=== PATIENT | female | born 1985 | race Caucasian/White ===

== ENCOUNTER → 2017-12-31 13:02 | Outpatient (CLI) | payer OTHER, SELFPAY ==
[2017-12-31 16:06] LABS: T4 Free Direct 1.04 ng/dL (0.76-1.46); Thyroid Stim Hormone (TSH) 1.41 uIU/mL (0.358-3.74)
== END ==
PROVIDERS: Family Provider Family Medicine; PCP Family Medicine; Visit Provider Family Medicine
DX: E03.9 Hypothyroidism, unspecified (principal)
CPT/HCPCS: 36415; 84439; 84443; 84480

== ENCOUNTER → 2018-04-21 11:47 | Outpatient (CLI) | payer OTHER, SELFPAY ==
[2018-04-21 15:52] LABS: Absolute Lymphocyte Count 2.27 X10^3/ul (0.83-4.51); Absolute Neutrophil Count 4.8 X10^3/uL (2.0-7.7); Basophil# 0.02 X10^3/uL; Basophil% 0.3 % (0-1); Eosinophil# 0.06 X10^3/uL; Eosinophils% 0.8 % (0-5); Hematocrit 40.3 % (37-47); Hemoglobin 13.8 g/dl (12.0-15.0); Lymphocyte # 2.27 X10^3/ul (4.0); Lymphocyte % 29.7 % (19-41); Mean Corp Hgb Conc 34.2 g/gl (32-36); Mean Corpuscular Hgb 31.1 pg (27.0-32.0); Mean Corpuscular Volume 90.8 fL (81-99); Mean Platelet Vol. 9.9 fl (6.2-12.0); Monocyte# 0.45 X10^3/uL; Monocyte% 5.9 % (0-10); Neutrophil # 4.83 X10^3/uL (2.7-7.7); Neutrophil % 63.2 % (47-70); Platelet Count 238 K/mm3 (150-450); RBC Distribution Width CV 12.2 % (11.6-14.6); RBC Distribution Width SD 39.8 fl (35.1-43.9); Red Blood Count 4.44 M/mm3 (4.2-5.4); White Blood Count 7.6 K/mm3 (4.4-11.0)
[2018-04-21 15:57] LABS: POSITIVE COUNT NO; POSITIVE DIFFERENTIAL NO; POSITIVE MORPHOLOGY NO
[2018-04-24 15:59] LABS: EBV Acute VCA IgM < 36.0 U/mL (0.0-35.9); EBV Early Antigen IgG 51.2 U/mL (0.0-8.9)
== END ==
PROVIDERS: Family Provider Family Medicine; PCP Family Medicine; Visit Provider Family Medicine
DX: J02.9 Acute pharyngitis, unspecified (principal)
CPT/HCPCS: 36415; 85025; 86663; 86664; 86665

== ENCOUNTER → 2018-07-01 07:36 | Outpatient (CLI) | payer OTHER, SELFPAY ==
[2018-07-01 10:34] LABS: T3 Total - Triiodothyronine 0.99 ng/mL (0.6-1.81)
[2018-07-01 10:42] LABS: T4 Free Direct 1.07 ng/dL (0.76-1.46); Thyroid Stim Hormone (TSH) 3.39 uIU/mL (0.358-3.74)
== END ==
PROVIDERS: Family Provider Family Medicine; PCP Family Medicine; Referring Provider Family Medicine; Visit Provider Family Medicine
DX: E03.9 Hypothyroidism, unspecified (principal)
CPT/HCPCS: 36415; 84439; 84443; 84480

== ENCOUNTER → 2018-09-22 10:05 | Outpatient (CLI) | payer OTHER, SELFPAY ==
[2018-09-21 10:35] VITALS: BMI 21.2
== END ==
PROVIDERS: Family Provider Family Medicine; PCP Family Medicine; Referring Provider Physician Assistant Medical; Visit Provider Physician Assistant Medical
DX: J02.9 Acute pharyngitis, unspecified (principal)
CPT/HCPCS: 87077; 87081

== ENCOUNTER → 2018-10-09 10:53 | Outpatient (CLI) | payer OTHER, SELFPAY ==
[2018-09-21 10:35] VITALS: BMI 21.2
== END ==
PROVIDERS: Family Provider Family Medicine; PCP Family Medicine; Visit Provider Family Medicine
DX: J02.9 Acute pharyngitis, unspecified (principal)
CPT/HCPCS: 87070

== ENCOUNTER → 2019-02-24 | Outpatient (CLI) | payer OTHER, SELFPAY ==
[2019-02-24 08:41] VITALS: BMI 21.2
== END | disposition home or self-care (01) ==
LOC: LABSPEC 14:26
PROVIDERS: Family Provider Family Medicine; PCP Family Medicine; Referring Provider Physician Assistant Medical; Visit Provider Physician Assistant Medical
DX: J02.9 Acute pharyngitis, unspecified (principal)
CPT/HCPCS: 87081

== ENCOUNTER → 2019-11-17 08:35 | Outpatient (CLI) | payer OTHER, SELFPAY ==
[2019-02-24 08:41] VITALS: BMI 21.2
[2019-11-17 10:01] LABS: Absolute Lymphocyte Count 1.63 X10^3/uL (0.83-4.51); Absolute Neutrophil Count 2.6 X10^3/uL (2.0-7.7); Basophil# 0.03 X10^3/uL; Basophil% 0.6 % (0-1); Eosinophil# 0.18 X10^3/uL; Eosinophils% 3.8 % (0-5); Hematocrit 39.1 % (37-47); Lymphocyte # 1.63 X10^3/ul (4.0); Lymphocyte % 34.1 % (19-41); Mean Corp Hgb Conc 33.2 g/dL (32-36); Mean Corpuscular Hgb 29.7 pg (27.0-32.0); Mean Corpuscular Volume 89.3 fL (81-99); Mean Platelet Vol. 9.1 fl (6.2-12.0); Monocyte# 0.32 X10^3/uL; Monocyte% 6.7 % (0-10); NRBC Flagged by Analyzer 0 % (0-5); Neutrophil # 2.61 X10^3/uL (2.7-7.7); Neutrophil % 54.6 % (47-70); Platelet Count 193 K/mm3 (150-450); RBC Distribution Width SD 38.8 fl (35.1-43.9); Red Blood Count 4.38 M/mm3 (4.2-5.4); White Blood Count 4.8 K/mm3 (4.4-11.0)
[2019-11-17 10:25] LABS: ALB/GLOB Ratio 1.1 RATIO (0.9-2.4); AST(SGOT) 14 U/L (15-37); Alanine Aminotransfer ALT/SGPT 20 U/L (13-56); Albumin, Serum 3.8 g/dL (3.2-5.0); Alkaline Phosphatase 71 U/L (45-117); Anion Gap 5 (5-15); BUN 15 mg/dL (7-18); BUN/Creat Ratio 18.8 RATIO (10-20); Calcium,Total 8.3 mg/dL (8.5-10.1); Chloride 107 mmol/L (98-107); Cholesterol 223 mg/dL (200); EST Glomerular Filtration Rate 87 mL/min (>60); Est Glom Filt Rate - Afr Amer 105 mL/min (>60); Free T3 2.5 pg/mL (2.18-3.98); Globulin 3.4 g/dL (2.2-4.2); Glucose 94 mg/dL (74-106); High Density Lipoprotein 64 mg/dL; Potassium 4.1 mmol/L (3.5-5.1); Protein, Total 7.2 g/dL (6.4-8.2); Sodium Level 139 mmol/L (136-145); T4 Free Direct 1.06 ng/dL (0.76-1.46); Thyroid Stim Hormone (TSH) 1.47 uIU/mL (0.358-3.74); Triglycerides 68 mg/dL; Very Low Density Lipoprotein 14 mg/dL (5-40)
== END ==
PROVIDERS: PCP Family Medicine; Referring Provider Family Medicine; Visit Provider Family Medicine
DX: E03.9 Hypothyroidism, unspecified (principal); K76.0 Fatty (change of) liver, not elsewhere classified; Z51.81 Encounter for therapeutic drug level monitoring; Z13.220 Encounter for screening for lipoid disorders
CPT/HCPCS: 36415; 80053; 80061; 84439; 84443; 84481; 85025

== ENCOUNTER → 2020-04-13 07:59 | Outpatient (CLI) | payer OTHER, SELFPAY ==
[2019-02-24 08:41] VITALS: BMI 21.2
[2020-04-13 08:27] LABS: hCG Titer Quant., Serum < 1 mIU/mL (1-3)
== END ==
PROVIDERS: PCP Family Medicine; Referring Provider Obstetrics & Gynecology Reproductive Endocrinology; Visit Provider Obstetrics & Gynecology Reproductive Endocrinology
DX: Z32.00 Encounter for pregnancy test, result unknown (principal)
CPT/HCPCS: 36415; 84702

== ENCOUNTER → 2020-06-28 | Outpatient (CLI) | payer OTHER, SELFPAY ==
[2020-06-28 08:41] VITALS: BMI 21.2
== END | disposition home or self-care (01) ==
LOC: LABSPEC 13:15
PROVIDERS: PCP Family Medicine; Referring Provider Physician Assistant Surgical; Visit Provider Physician Assistant Surgical
DX: J02.9 Acute pharyngitis, unspecified (principal)
CPT/HCPCS: 87081

== ENCOUNTER → 2020-09-16 09:16 | Outpatient (CLI) | payer OTHER, SELFPAY ==
[2020-06-28 08:41] VITALS: BMI 21.2
[2020-09-16 10:09] LABS: Absolute Lymphocyte Count 1.53 X10^3/uL (0.83-4.51); Absolute Neutrophil Count 3.4 X10^3/uL (2.0-7.7); Basophil# 0.02 X10^3/uL; Basophil% 0.4 % (0-1); Eosinophil# 0.13 X10^3/uL; Eosinophils% 2.4 % (0-5); Hematocrit 41.4 % (37-47); Hemoglobin 13.7 g/dL (12.0-15.0); Lymphocyte # 1.53 X10^3/ul (4.0); Lymphocyte % 28.1 % (19-41); Mean Corp Hgb Conc 33.1 g/dL (32-36); Mean Corpuscular Hgb 30.2 pg (27.0-32.0); Mean Corpuscular Volume 91.4 fL (81-99); Mean Platelet Vol. 9.1 fl (6.2-12.0); Monocyte# 0.37 X10^3/uL; Monocyte% 6.8 % (0-10); NRBC Flagged by Analyzer 0 % (0-5); Neutrophil # 3.38 X10^3/uL (2.7-7.7); Neutrophil % 61.9 % (47-70); Platelet Count 236 K/mm3 (150-450); RBC Distribution Width CV 12.6 % (11.6-14.6); RBC Distribution Width SD 41.8 fl (35.1-43.9); Red Blood Count 4.53 M/mm3 (4.2-5.4); White Blood Count 5.5 K/mm3 (4.4-11.0)
[2020-09-16 10:49] LABS: ALB/GLOB Ratio 1.3 RATIO (0.9-2.4); AST(SGOT) 15 U/L (15-37); Alanine Aminotransfer ALT/SGPT 15 U/L (13-56); Albumin, Serum 4.3 g/dL (3.2-5.0); Alkaline Phosphatase 72 U/L (45-117); Anion Gap 4 (5-15); BUN 15 mg/dL (7-18); BUN/Creat Ratio 16.8 RATIO (10-20); Calcium,Total 8.5 mg/dL (8.5-10.1); Chloride 109 mmol/L (98-107); Cholesterol 202 mg/dL (200); Creatinine, Serum 0.89 mg/dL (0.55-1.02); EST Glomerular Filtration Rate 76 mL/min (>60); Est Glom Filt Rate - Afr Amer 92 mL/min (>60); Free T3 2.3 pg/mL (2.18-3.98); Globulin 3.3 g/dL (2.2-4.2); Glucose 93 mg/dL (74-106); High Density Lipoprotein 68 mg/dL; Potassium 4.3 mmol/L (3.5-5.1); Protein, Total 7.6 g/dL (6.4-8.2); Sodium Level 139 mmol/L (136-145); T4 Free Direct 1.15 ng/dL (0.76-1.46); Triglycerides 40 mg/dL; Very Low Density Lipoprotein 8 mg/dL (5-40)
== END ==
PROVIDERS: PCP Family Medicine; Referring Provider Family Medicine; Visit Provider Family Medicine
DX: E03.9 Hypothyroidism, unspecified (principal); E78.5 Hyperlipidemia, unspecified; Z51.81 Encounter for therapeutic drug level monitoring
CPT/HCPCS: 36415; 80053; 80061; 84439; 84443; 84481; 85025

== ENCOUNTER 2020-12-30 12:26 | Outpatient (RCR) | payer BC, SELFPAY ==
[2020-06-28 08:41] VITALS: BMI 21.2
== END 2021-03-07 23:59 ==
LOC: IMMUN 12:26
PROVIDERS: PCP Family Medicine; Visit Provider Family Medicine
DX: Z23 Encounter for immunization (principal)
CPT/HCPCS: 0001A; 0002A; 91300

== ENCOUNTER → 2021-05-03 | Outpatient (CLI) | payer BC, SELFPAY ==
[2021-05-03 14:54] VITALS: BMI 21.2
== END | disposition home or self-care (01) ==
LOC: LABSPEC 18:07
PROVIDERS: PCP Family Medicine; Visit Provider Physician Assistant Surgical
DX: N39.0 Urinary tract infection, site not specified (principal)
CPT/HCPCS: 87077; 87086; 87088; 87186

== ENCOUNTER → 2023-03-08 | Outpatient (CLI) | payer BC, SELFPAY ==
[2023-03-08 11:51] LABS: Free T3 2.4 pg/mL (2.18-3.98); T4 Free Direct 1.03 ng/dL (0.76-1.46); Thyroid Stim Hormone (TSH) 1.96 uIU/mL (0.358-3.74)
== END | disposition home or self-care (01) ==
LOC: MTLAB 08:55
PROVIDERS: PCP Family Medicine; Referring Provider Family Medicine; Visit Provider Family Medicine
DX: E03.9 Hypothyroidism, unspecified (principal)
CPT/HCPCS: 36415; 84439; 84443; 84481

== ENCOUNTER → 2023-12-20 | Outpatient (CLI) | payer BC, SELFPAY ==
[2023-12-20 12:00] LABS: Erythrocyte Sedimentation Rate < 1 mm/hr (0-30)
[2023-12-20 12:02] LABS: Mean Corp Hgb Conc 33.3 g/dL (32-36); Mean Corpuscular Hgb 30.8 pg (27.0-32.0); Mean Corpuscular Volume 92.3 fL (81-99); Mean Platelet Vol. 9.5 fl (6.2-12.0); Platelet Count 252 K/mm3 (150-450); RBC Distribution Width CV 11.8 % (11.6-14.6); RBC Distribution Width SD 39.4 fl (35.1-43.9); Red Blood Count 4.55 M/mm3 (4.2-5.4); White Blood Count 5.2 K/mm3 (4.4-11.0)
[2023-12-20 12:45] LABS: ALB/GLOB Ratio 1.2 RATIO (0.9-2.4); AST(SGOT) 15 U/L (15-37); Alanine Aminotransfer ALT/SGPT 17 U/L (13-56); Albumin, Serum 4.2 g/dL (3.2-5.0); Alkaline Phosphatase 77 U/L (45-117); Anion Gap 8 (5-15); BUN 12 mg/dL (7-18); BUN/Creat Ratio 13.9 RATIO (10-20); Calcium,Total 9.1 mg/dL (8.5-10.1); Chloride 104 mmol/L (98-107); Cholesterol 234 mg/dL (200); Creatinine, Serum 0.86 mg/dL (0.55-1.02); EST Glomerular Filtration Rate 78 mL/min (>60); Est Glom Filt Rate - Afr Amer 94 mL/min (>60); Ferritin 79 ng/mL (8-252); Globulin 3.5 g/dL (2.2-4.2); Glucose 96 mg/dL (74-106); High Density Lipoprotein 71 mg/dL; Iron 55 ug/dL (50-170); Potassium 4.2 mmol/L (3.5-5.1); Protein, Total 7.7 g/dL (6.4-8.2); Sodium Level 138 mmol/L (136-145); T4 Free Direct 1.09 ng/dL (0.76-1.46); Thyroid Stim Hormone (TSH) 1.66 uIU/mL (0.358-3.74); Triglycerides 41 mg/dL; Very Low Density Lipoprotein 8 mg/dL (5-40)
== END | disposition home or self-care (01) ==
LOC: BIMLAB 09:26
PROVIDERS: PCP Nurse Practitioner; Referring Provider Nurse Practitioner; Visit Provider Nurse Practitioner
DX: Z00.00 Encounter for general adult medical examination without abnormal findings (principal); E07.9 Disorder of thyroid, unspecified; R22.31 Localized swelling, mass and lump, right upper limb
CPT/HCPCS: 36415; 80053; 80061; 82728; 83540; 84439; 84443; 84482; 85027; 85652

== ENCOUNTER → 2023-12-26 | Outpatient (CLI) | payer BC, SELFPAY ==
--- NOTE | 2023-12-26 14:22 | BI_ITS ---
MAMMOGRAPHY - BILATERAL DIAGNOSTIC REASON FOR EXAM: Female, 38 years old. Right axillary mass. PERTINENT HISTORY: Aunt with breast cancer. TECHNIQUE: Digital bilateral breast pushpa (3D mammographic acquisition) in the CC and MLO projections. 2-D mediolateral oblique (MLO) and craniocaudad (CC) views of both breasts were obtained. CAD: Full Field Digital Mammography with Computer Added Detection was performed. COMPARISON: None. Baseline examination. FINDINGS: Breast Composition: The breasts are extremely dense, which lowers the sensitivity of mammography. There are no dominant masses or suspicious calcifications. No other significant abnormalities are identified. BI/DIAG MAMM W/CAD, BILAT IMPRESSION: Negative diagnostic mammogram. With the patient''s history of a right axillary mass, correlation with ultrasound is recommended. ASSESSMENT CATEGORY: BIRADS Category 0: Incomplete. Need additional imaging evaluation. A letter regarding these results will be sent to the patient by the facility within 30 days. Approximately 10% of breast cancers are not detected by mammography. A normal mammogram should not delay biopsy of a clinically suspicious abnormality. Electronically Signed: Bishnu Springer MD at 15:17 EDT ,
--- NOTE | 2023-12-26 14:22 | US_ITS ---
STUDY: ULTRASOUND BREAST - RIGHT REASON FOR EXAM: Female, 38 years old. Right axillary mass. History of prior Covid and right axillary adenopathy. TECHNIQUE: Axial and longitudinal images of the RIGHT breast were performed with a high resolution ultrasound transducer. # OF IMAGES: 34 COMPARISON: Comparison is made with prior mammogram done earlier today. FINDINGS: RIGHT Breast: The right axilla was examined with ultrasound. Several lymph nodes are seen. The largest measures 2 cm x 1.5 cm x 1 cm. Fatty hilum is seen suggestive of benignity. US/Breast Limited Unilateral IMPRESSION: Lymph nodes are seen in the right axilla. ASSESSMENT CATEGORY: BIRADS Category 2: Benign. A letter regarding these results will be sent to the patient by the facility within 30 days. Electronically Signed: Bishnu Springer MD at 15:40 EDT ,
== END | disposition home or self-care (01) ==
PROVIDERS: PCP Nurse Practitioner; Referring Provider Nurse Practitioner; Visit Provider Nurse Practitioner
DX: R22.31 Localized swelling, mass and lump, right upper limb (principal); N63.31 Unspecified lump in axillary tail of the right breast; Z80.3 Family history of malignant neoplasm of breast
CPT/HCPCS: 76642; 77062; 77066; G0279

== ENCOUNTER → 2023-12-31 | Outpatient (CLI) | payer BC, SELFPAY ==
[2023-12-31 12:11] LABS: Internal QC Validated? YES +Cl - CLEAR BKGD; Monotest Negative (Negative)
[2023-12-31 12:12] LABS: Record Kit Lot#, Mono 13231163
[2023-12-31 12:14] LABS: HIV - WCH Non-Reactive (Nonreactive)
[2024-01-03 08:11] LABS: B. henselae IgG Negative titer (Neg:<1:320); B. henselae IgM Negative titer (Neg:<1:100); B. quintana IgG Negative titer (Neg:<1:320); B. quintana IgM Negative titer (Neg:<1:100); CMV Acute Antibody IgM < 30.0 AU/mL (0.0-29.9); Hepatitis Be Ag Negative (Negative); Lyme Scn Total Ab w/Rflx Negative (Negative); QNTFERON TB Mitogen Value > 10.00 IU/mL (.); QNTFERON TB Nil Value 0.07 IU/mL (.); QNTFERON TB1+ Ag Value 0.05 IU/mL (.); QNTFERON TB2+ Ag Value 0.05 IU/mL (.); QNTIFERON TB Positive Criteria Negative (Negative)
== END | disposition home or self-care (01) ==
LOC: BIMLAB 09:23
PROVIDERS: PCP Nurse Practitioner; Referring Provider Nurse Practitioner; Visit Provider Nurse Practitioner
DX: R59.1 Generalized enlarged lymph nodes (principal)
CPT/HCPCS: 36415; 86308; 86480; 86611; 86618; 86645; 86703; 87350

== ENCOUNTER → 2024-01-07 | Outpatient (CLI) | payer BC, SELFPAY ==
--- NOTE | 2024-01-07 14:24 | US_ITS ---
EXAM: US PELVIS TRANSABDOMINAL, COMPLETE CLINICAL INDICATION: PAIN TECHNIQUE: Transabdominal pelvic ultrasound was performed with grayscale and color Doppler imaging. COMPARISON: No relevant prior studies available. FINDINGS: UTERUS/CERVIX: Uterus measures 8.3 x 5.2 x 3.8 cm with endometrial thickness of 3 mm. 9 mm anterior uterine fibroid is noted. Anteverted. RIGHT OVARY: Normal. Blood flow is present in the right ovary. The right ovary measures 2.9 x 1.9 x 1.7 cm. LEFT OVARY: Normal. Blood flow is present in the left ovary. The left ovary measures 3.0 x 1.9 x 1.7 cm. FREE FLUID: None. US/Pelvic (Non ) IMPRESSION: 9 mm uterine fibroid. Otherwise unremarkable pelvic ultrasound. Electronically Signed: Daryn Campbell MD at 15:01 EDT ,
[2024-01-07 15:48] LABS: Erythrocyte Sedimentation Rate < 1 mm/hr (0-30)
[2024-01-07 16:42] LABS: CRP < 2.90 mg/L (0.0-3.0); LDH 180 U/L (84-246)
== END | disposition home or self-care (01) ==
PROVIDERS: PCP Nurse Practitioner; Referring Provider Obstetrics & Gynecology; Visit Provider Obstetrics & Gynecology
DX: R10.2 Pelvic and perineal pain (principal); N80.9 Endometriosis, unspecified
CPT/HCPCS: 36415; 76856; 83615; 85652; 86140

== ENCOUNTER → 2024-01-14 | Outpatient (CLI) | payer BC, SELFPAY ==
[2024-01-15 14:09] LABS: ANTINUCLEAR ANTIBODIES DIRECT Negative (Negative)
[2024-01-17 03:07] LABS: CCP IgG Antibodies 3 units (0-19); Dilute Prothrombin Time (dPT) 35.6 sec (0.0-47.6); Dilute Russell Viper Venom 32.8 sec (0.0-47.0); Interpretation Comment: (.); PTT-LA 33.8 sec (0.0-43.5); Thrombin Time 19.6 sec (0.0-23.0); dPT Confirm Ratio 0.99 Ratio (0.00-1.34)
== END | disposition home or self-care (01) ==
LOC: BIMLAB 09:19
PROVIDERS: PCP Nurse Practitioner; Visit Provider Nurse Practitioner
DX: R59.1 Generalized enlarged lymph nodes (principal)
CPT/HCPCS: 86038; 86200; 86225; 86235

== ENCOUNTER 2024-04-08 12:30 | Outpatient (RCR) | payer BC, SELFPAY ==
--- NOTE | 2024-03-06 16:26 | HP.PTEVAL_ITS ---
Patient's Visit Information Visit Information Visit Information: MARK LIAO is a 38 year old F referred to Physical Therapy by OSCAR Traylor with a diagnosis of PAIN IN R KNEE. Date of Evaluation: 03/06/24 Physical Therapist: Samra Uriarte, PT, Cert MDT Visit Plan Frequency: 2x /Week Duration: 4-6 Weeks Plan: R KNEE US AT 1.3 W/CM2 X 8 MIN X 6 TO 8 VISITS. STATIONARY BIKE X 10 MIN WITH SEAT HEIGHT FOR 15 DEG KNEE FLEX AT LOWEST PETAL POINT QUAD AND HS STRETCHING. LEG PRESS, STEP UP TO BALANCE, GLUT BRIDGE (IN PAINFREE ROM) AND SDLY BANDED CLAMS WITH WRITTEN HEP INSTRUCTIONS. 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 Disability: NO Present symptoms: R KNEE PAIN ABOVE AND BELOW KNEE IN THE FRONT. DENIES NUMBNESS AND TINGLING. NO LOCKING, CLICKING OR POPPING. Present since: ORIGINALLY IN HS FROM A FALL DURING GYMNASTICS. INTERMITTENT PAIN EVER SINCE BUT MORE CONSTANT FOR ABOUT YEAR. Pain Scale: WORST 4/10, LEAST 0/10 Currently: 1-2/10 Is it getting better, worse or staying the same: STAYING THE SAME Commenced as a result of: NO APPARENT REASON Symptoms at onset: SAME Worse: DEEP SQUATS, SHALLOW SQUATS WITH NARROW BASE OF SUPPORT AND TOEING OUT, GLUT BRIDGE, PROLONGED WALKING ON UNEVEN SURFACES, PROLONGED DRIVING. Better: SITTING OR LYING WITH LEG EXTENDED VS LEG BENT OR HAVING KNEE SLIGHTLY BENT WITH PILLOW UNDER KNEE. Disturbed sleep: NO Previous history/Previous treatment: NONE Treatment this episode: PT CONSULT ORDERED Gait: NOT LIMITED IN EVERYDAY WALKING. Accidents: NO Unexplained weight loss: NO Imaging: RECENT R KNEE X-RAY - NORMAL PMH/Recent major surgery: Fibroid uterus Hormone deficiency Hives Head ache History of blood transfusion UTI (urinary tract infection) Acute sinusitis, unspecified Thyroid disease History of endometriosis Objective Objective: THIS PATIENT AMBULATES INDEP'LY INTO PT WITHOUT ANY AD'S OR GROSS DEVIATIONS NOTED. Sensory deficit: JEMIMA LE LIGHT TOUCH SENSATION IS GROSSLY INTACT AND SYMMETRICAL ROM deficit: FULL R KNEE EXT TO 137 DEG FLEX COMPARED TO 142 DEG FLEX L. Motor deficit: JEMIMA LE'S 5/5 WITH MMT'ING EXCEPT JEMIMA HIP EXT AND ER 4/5 AND FULL SQUAT AND SHALLOW SQUAT WITH NARROW NARCISA AND JEMIMA HIP ER ARE LIMITED DUE TO PAIN IN R KNEE. Dural Signs: NEGATIVE JEMIMA LE'S. Lumbar mvmt loss: NIL Core strength: GOOD GIRTH MEASUREMENTS: MILD R KNEE SWELLING WITH 35.7 CM MID PATELLA R AND 35 CM L Palpation: NO ACUTE R KNEE TENDERNESS. Special Tests R Knee Kali - Meniscus: Negative R Knee Apley - Meniscus: Negative R Knee Vince - ACL: Negative R Knee Anterior Drawer - ACL: Negative R Knee Posterior Drawer - PCL: Negative R Knee Valgus - MCL: Negative R Knee Varus - LCL: Negative Balance/Special Test Scores Lower Extremity Functional Score: 68 Goals Goal 1:: PATIENT WILL REPORT DECREASED R KNEE PAIN BY AT LEAST 50% Goal Time Frame: 4-6 Weeks Goal 2:: PATIENT WILL HAVE FULL R KNEE FLEXION ROM SYMMETRICAL WITH L KNEE. Goal Time Frame: 4-6 Weeks Goal 3:: PATIENT WILL HAVE DECREASED EDEMA OF R KNEE SYMMETRICAL WITH L KNEE Goal Time Frame: 4-6 Weeks Goal 4:: PATIENT WILL BE ABLE TO SQUAT WITHOUT PAIN Goal Time Frame: 4-6 Weeks Goal 5:: INDEP HEP Goal Time Frame: 4-6 Weeks Rehabilitation Potential Physical Therapy Diagnosis: THIS PATIENT PRESENTS TO PT WITH C/O CHRONIC R KNEE PAIN, MILD R KNEE SWELLING, R HIP WEAKNESS, DECREASED R KNEE FLEXION ROM COMPARED TO L AND LIMITED SQUATTING FUNCTION. Rehabilitation Potential: Good Anticipated Interventions Patient/Client Instruction: Educate patient on: Condition, Plan of Care and Risk Factors For the Purpose of:: To improve self management Therapeutic Exercise to Include: Strength training and Flexibilty training For the Purpose of:: To decrease pain, To increase ROM, To improve muscle performance and motor function, To increase tolerance to activity/condition/position and To improve ability of physical actions for home/community/work/leisure Cryotherapy (ice pack, ice massage): Yes Thermo therapy (hot pack): Yes Ultrasound (thermal/non thermal): Yes For the Purpose of:: To decrease pain, To decrease swelling/inflammation and To improve nutrient delivery to tissue Text: Thank you for the opportunity to evaluate your patient. For Medicare and Medicare HMO plans, please review the plan of care and approve it. It will need to be FAXED BACK to us at [phone] for Medicare purposes. For Medicare only, by signing this I certify the plan of care. Please let me know if there are questions or concerns regarding this plan of care. Physician Signature: Date:
--- NOTE | 2024-04-08 13:34 | HP.PTDCSUM ---
Discharge Summary D/C summary: It has been my pleasure to treat MARK LIAO referred by Farrah Casper NP-C, with the diagnosis of PAIN IN R KNEE for a total of 6 visit(s). Discharge Date: Please see the following information for a summary of their discharge status. Subjective Subjective: PATIENT REPORTS SHE REALLY HASN'T FELT A DIFFERENCE OVER-ALL IN HER PAIN. SHE DENIES INCREASED PAIN WITH THE EX'S AND STATES THE US FELT GOOD BUT NO BETTER OVER-ALL Pain R knee: Pain Intensity (Out of 10): 1 Overall Improvement % Improvement: 0 Objective Objective/Function: ONLY SEEING A FEW CM'S OF DECREASED SWELLING AND A FEW DEGREES OF INCREASED KNEE FLEX ROM WITH TESTING TODAY. NO CHANGE IN SUBJECTIVE PAIN REPORTS WITH SQUATTING. SHE HAS NOT HAD INCREASED PAIN WITH THER EX AND IS INDEP WITH A HEP. SHE MAY BENEFIT FROM [facility]. WE HAVE DONE THE 6 VISITS APPROVED BY INSURANCE AT THIS POINT AND PATIENT IS GOING TO FOLLOW UP WITH HER PCP. UPON EXAM TODAY: ROM deficit: FULL R KNEE EXT TO 139 DEG FLEX COMPARED TO 142 DEG FLEX L. Motor deficit: JEMIMA LE'S 5/5 WITH MMT'ING EXCEPT JEMIMA HIP EXT AND ER 4/5 AND FULL SQUAT AND SHALLOW SQUAT WITH NARROW NARCISA AND JEMIMA HIP ER ARE LIMITED DUE TO PAIN IN R KNEE. Dural Signs: NEGATIVE JEMIMA LE'S. Lumbar mvmt loss: NIL Core strength: GOOD GIRTH MEASUREMENTS: MILD R KNEE SWELLING WITH 35.3 CM MID PATELLA R AND 35 CM L Goals Goal 1:: PATIENT WILL REPORT DECREASED R KNEE PAIN BY AT LEAST 50% Goal Progress: Not Progressing Goal 2:: PATIENT WILL HAVE FULL R KNEE FLEXION ROM SYMMETRICAL WITH L KNEE. Goal Progress: NOT MET Goal 3:: PATIENT WILL HAVE DECREASED EDEMA OF R KNEE SYMMETRICAL WITH L KNEE Goal Progress: NOT MET Goal 4:: PATIENT WILL BE ABLE TO SQUAT WITHOUT PAIN Goal Progress: Not Progressing Goal 5:: INDEP HEP Goal Progress: Goal Met Plan Plan: D/C DUE TO LACK OF SIGNIFICANT PROGRESS D/C Information d/c sentence: If there are questions or concerns regarding this patient's physical therapy, please feel free to call me at [phone]. Thank you for the referral of this patient. Sincerely, Samra Uriarte, PT, Cert MDT Balance/Gait/Functional tests Balance/Special Test Scores Lower Extremity Functional Score: 72 Improvement % Improvement: 0
== END 2024-04-08 19:00 | disposition home or self-care (01) ==
LOC: PT 12:30
PROVIDERS: PCP Nurse Practitioner; Referring Provider Nurse Practitioner; Visit Provider Nurse Practitioner
DX: M25.561 Pain in right knee (principal); G89.29 Other chronic pain
CPT/HCPCS: 97035; 97110; 97161; 97530

== ENCOUNTER → 2024-05-25 | Outpatient (CLI) | payer BC, SELFPAY ==
--- NOTE | 2024-05-25 14:45 | MRI_ITS ---
STUDY: MRI RIGHT KNEE REASON FOR EXAM: Female, 38 years old. Right knee pain. Intermittent pain around knee joint over 20 years. Increasing frequency, bending, popping, no surgery. TECHNIQUE: Standardized fat and water weighted pulse sequences were obtained in all 3 orthogonal planes. COMPARISON: Right knee radiographs dated 03/03/2024. FINDINGS: Normal medial meniscus. Normal hyaline cartilage of the medial femorotibial compartment. Normal medial femoral condyle and tibial plateau. Normal medial collateral ligamentous complex (MCL). Normal distal semimembranosus, gracilis and semitendinosus tendons. Normal lateral meniscus. Normal hyaline cartilage of the lateral femorotibial compartment. Normal lateral femoral condyle and tibial plateau. Normal proximal tibiofibular articulation. Normal lateral collateral (fibular) ligament. Normal popliteus tendon. Normal biceps femoris tendon. Normal anterior cruciate ligament (ACL). Normal posterior cruciate ligament (PCL). There is focal grade I chondromalacia of the medial patellar facet (axial T2 series 3 image 11 Congruent patellofemoral articulation. Normal medial and lateral patellar retinaculum. Normal quadriceps tendon. Normal patellar tendon. Normal Hoffa''s fat pad. There is a tiny joint effusion. There is a small popliteal cyst. There is mild subcutaneous soft tissue edema along the anterior aspect of the knee. The otherwise visualized osseous structures are unremarkable. 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 Tiny joint effusion, with a small popliteal cyst. Mild subcutaneous soft tissue edema along the anterior aspect of the knee. No discrete meniscal tear or acute ligamentous injury. Electronically Signed: Lan Harris MD at 15:55 EDT ,
== END | disposition home or self-care (01) ==
LOC: MRI 14:41
PROVIDERS: PCP Nurse Practitioner; Referring Provider Nurse Practitioner; Visit Provider Nurse Practitioner
DX: M25.561 Pain in right knee (principal); G89.29 Other chronic pain
CPT/HCPCS: 73721

== ENCOUNTER 2024-06-12 12:57 | Day surgery (SDC) | payer BC, SELFPAY ==
--- NOTE | 2024-06-12 13:05 | PRE.ANES_ITS ---
ASA Classification* ASA Classification ASA Classification: 2 Assessment & Plan Anesthesia* Anesthesia Assessment Anesthesia Assessment: Discussed sedation and/or anesthesia options, risks, benefits, and alternatives with patient/parents/legal guardian/POA. Questions invited. The patient/parents/legal guardian/POA seems to understand and agrees to proceed with anesthesia plan. Reviewed the physical assessment, medical history, allergy history and patient home medications list prior to surgery/procedure/anesthetic and documented any changes. Performed airway and anesthesia risk assessments. Anesthesia Type Anesthesia Type: MAC Anesthesia Focused Assessment* Airway Assessment Mouth opens: >3 cm Mallampati Score: II Focused Labs Anesthesia Preop lab: CBC WBC 5.2 K/mm3 (4.4-11.0) 12/20/23 09:27 RBC 4.55 M/mm3 (4.2-5.4) 12/20/23 09:27 Hgb 14.0 g/dL (12.0-15.0) 12/20/23 09:27 Hct 42.0 % (37-47) 12/20/23 09:27 Plt Count 252 K/mm3 (150-450) 12/20/23 09:27 CHEMISTRY Potassium 4.2 mmol/L (3.5-5.1) 12/20/23 09:27 Sodium 138 mmol/L (136-145) 12/20/23 09:27 BUN 12 mg/dL (7-18) 12/20/23 09:27 Creatinine 0.86 mg/dL (0.55-1.02) 12/20/23 09:27 Glucose 96 mg/dL (74-106) 12/20/23 09:27 TSH 1.66 uIU/mL (0.358-3.74) 12/20/23 09:27 COAG PT 14.0 SECONDS (11.7-14.9) 02/08/16 17:40 HCG, Quant < 1 mIU/mL (1-3) 04/13/20 08:03 Urine Test Negative Negative 11/21/15 11:35 Pre-Assessment Diagnosis/Proposed Procedure Planned Operative Procedure(s): COLONOSCOPY Anesthesia History 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 When Was Last Pacemaker Check QUESTION #4 FULL TEXT: You/Your Family Experience fever (hyperthermia) with Anesthesia Last Oral Intake Last Oral intake: Last Oral Intake NPO since Meds taken in AM with sips of water? Meds patient instructed to take am of surgery PONV PONV - weapons and tactics instructor: PONV - weapons and tactics instructor Female Yes 06/10/24 12:25 HX of Motion Sickness Yes 06/10/24 12:25 HX of N/V After Surgery Yes 06/10/24 12:25 Non-Smoker Yes 06/10/24 12:25 Duration of Surgery greater No 06/10/24 12:25 than 60 minutes Number of Risk Factors 4 06/10/24 12:25 PONV Score Severe Risk 06/10/24 12:25 Height & Weight Height & Weight: Anesthesia: Height & Weight Height 5 ft 3 in 05/27/24 16:11 Respiratory Assessment Respiratory Assessment - weapons and tactics instructor: Respiratory Tract Infection Hx - weapons and tactics instructor Hx Respiratory Tract Infection No 06/10/24 12:25 STOP Sleep Apnea STOP Sleep Apnea - weapons and tactics instructor: STOP Sleep Apnea - weapons and tactics instructor Hx Hypertension No 06/10/24 12:25 Hx Sleep Apnea No 06/10/24 12:25 CPAP BIPAP Do you snore loudly (louder No 06/10/24 12:25 than talking or can be heard Do you often feel tired/ No 06/10/24 12:25 fatigued/ sleepy during daytime? Has anyone observed you stop No 06/10/24 12:25 breathing during sleep? STOP Results Negative 06/10/24 12:25 QUESTION #5 FULL TEXT : Do you snore loudly (louder than talking or can be heard through closed doors)? 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 Specify any problems Hx of Preganancy in last 3 No 06/10/24 12:25 Months Nurse Filling Out Transfusion VCHRISTIN 06/10/24 12:25 & Questions: Date: 06/10/24 06/10/24 12:25 Time: 12:26 06/10/24 12:25 Patient unable to answer at this time (ie. confused, unrespo /Reproduction History /Reproductive History - weapons and tactics instructor: /Reproductive Hx- weapons and tactics instructor Hx Now No 06/10/24 12:25 Gestational Age (in weeks): EDC: Hx Hx Para Hx Section SAB No 06/10/24 12:25 Active Medications Active Medications: Current Medications Generic Name Dose Route Start Last Admin Trade Name Freq PRN Reason Stop Dose Admin Lactated Ringer's 1,000 mls @ 15 mls/hr 06/12/24 13:15 IV .Q48H GERDA PFSH Medical History Alcohol use Back pain Non-smoker History of uterine fibroid Fibroid uterus Hormone deficiency Hives Head ache History of blood transfusion UTI (urinary tract infection) Acute sinusitis, unspecified Thyroid disease History of endometriosis history of labor and delivery Home Medications ?Medication ?Instructions ?Recorded ?Last Taken ?Type levothyroxine 50 mcg tablet 50 mcg PO SUTUTHSA Thyroid 06/10/24 Unknown History levothyroxine 75 mcg tablet 75 mcg PO MOWEFR Thyroid 06/10/24 Unknown History loratadine 10 mg tablet (Claritin) 10 mg PO DAILY 06/10/24 Unknown History Allergy/AdvReac Type Severity Reaction Status Date / Time adhesive tape AdvReac Mild skin Verified 06/10/24 12:18 irritation Family History Grandmother Diabetes Heart disease Parkinsons disease Cancer skin Grandfather Heart disease Hypertension CVA (cerebral vascular accident) Diabetes Cancer skin Social History household members: spouse and children housing: house current occupational status: employed 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 Smoking Status: Never smoker alcohol intake: current alcohol intake frequency: a few times a week substance use type: does not use what type of physical activity do you participate in: yoga frequency: 5-6 times per week seatbelt use: always do you feel safe at home: Yes Review of Systems (Anesthesia) ROS Narrative System reviewed and no additional complaints, except as documented.
[2024-06-12] MEDS: Lactated Ringers 1,000 ML 15 ML IV (13:15)
[2024-06-12 13:21] VITALS: BP 119/84; PULSE 80; RESP 16; TEMP 36.6; O2SAT 100; BMI 23.7
[2024-06-12 13:24] LABS: Internal QC Validated? YES +Cl - CLEAR BKGD; Pregnancy, Urine Negative Negative; Record Kit Lot#,Urine Preg HCG0000772476
--- NOTE | 2024-06-12 13:36 | HP.PCM_ITS ---
History and Physical Date of Admission: 06/12/24 MARK LIAO, is a 38 F who presents to the office today for establishment with [facility] in order to obtain a colonoscopy prior to scheduled laparoscopy for endometriosis removal on October 16, 2024. She reports that she had an MRI done to investigate the locations of endometriosis implantations; a couple of areas of endometrial tissue were noted to be on her colon, unknown depth of attachment. She reports that her gynecological surgeon is requesting a colonoscopy to be performed to verify no internal involvement of endometrial tissue. She reports that she has diarrhea 3-4x/day, it does not wake her up, and denies hematochezia and melena. She denies nausea, vomiting, fever and chills. S he reports drinking filtered water. She states that she just wants a detailed colonoscopy performed so that her surgeon will know what to expect as a colorectal surgeon will be available on surgery date. She states that if diarrhea continues after the new year, she will pursue investigation of causes. ROS Const Constitutional: Positive for fatigue; No chills, fever(s) or weight change Eyes Eyes: No change in vision ENT ENT: No abnormal hearing or difficulty swallowing Resp Respiratory: No cough Gastro GI: No abdominal pain, belching, bloating, change in bowel habits, change in stool character, coffee ground emesis, constipation, cramping, diarrhea, he artburn, difficulty swallowing, feeling full early, excessive flatus, incontinent of stools, Vomiting blood/hematemesis, Blood in stool, loose stools, Black,tarry stools, nausea/dyspepsia, pain with swallowing, vomiting or other Genitourinary-Female: No difficulty urinating Musc Musculoskeletal: Positive for back pain, restless legs and leg pain at night; No joint pain Skin Skin: No yellowing of the eye or itchy eyes Neuro Neurology: Positive for restless legs; No abnormal hearing Psych Psychiatric: No anxiety and No depression Endo Endocrine: Positive for fatigue; No cold intolerance, heat intolerance or weight change Aller/Imm Allergy/Immunologic: No food intolerance or itchy eyes Dre/Lymp Hematologic/Lymphatic: No easy bleeding or easy bruising Exam Const General: cooperative and healthy appearing Nutritional Appearance: average body habitus and well nourished Orientation: alert and oriented x3 HENMT Head: normal to inspection Ears: hearing grossly normal bilaterally Nose: external nose normal Face and sinus: normal facial exam and face symmetric Eyes General: appearance normal, both eyes and all related structures Neck Neck: normal visual inspection and full ROM Neck mass: No Chest Chest palpation & inspection: normal inspection of the chest Resp Effort & Inspection: normal respiratory effort, able to speak in complete sentences and symmetric chest movement GI Inspection: normal to inspection Auscultation: normal bowel sounds Palpation: soft and no hepatosplenomegaly Skin General: no rashes or lesions noted Neuro General: patient alert and patient oriented x3 Cognition: normal cognition Speech: speech normal Gait: normal gait Extrem General: normal to inspection and full ROM Psych Appearance: grossly normal and well kempt Mental Status: mental status grossly normal Mood: congruent mood Affect: normal affect Speech and Movement: speech and movement normal Attitude: cooperative Thought Process: normal Judgment: judgment good Assessment and Plan Assessment and Plan (1) Diarrhea: Status: Acute Qualifiers: Diarrhea type: unspecified type Qualified Code(s): R19.7 - Diarrhea, unspecified Plan: MARK LIAO, is a 38 F who presents to the office today for establishment with [facility] in order to obtain a colonoscopy prior to scheduled laparoscopy for endometriosis removal on October 16, 2024. * order colonoscopy for internal evaluation of colon per gynecological surgeon request. * call office to schedule follow-up appt 3 months after surgery to investigate diarrhea Coding Level of Care Code New Pt Off vis,new,level 2 Patient Type New History Problem Focused Exam Problem Focused Medical Decision Making Straight Forward I have examined the patient and the H&P has been reviewed. There are no clinical changes since date of exam.
--- NOTE | 2024-06-12 14:00 | COLBX_PTH ---
PATIENT: MARK LIAO LOC: EN U#:[id number] AGE/SX: 38/F ROOM: RE06/12/[address]: Dr. Barrera Colmenares DO : 1985 BED: DIS: 06/12/2024 SPEC #: [id number] RECD: 06/12/24 15:31 STATUS: CHERIE SESAR #: [id number] ALY: 06/12/24 14:[address]: Barrera Colmenares DEPT: SURGICAL PATHOLOGY RECD BY: Sudarshan Adams ENTERED: 06/15/24 06:50 SP TYPE: COLON BX OTHR DR: Farrah Casper, MILL MANAGER-C Tissues: A - Ileum, NOS B - COLON BIOPSY C - Rectum, NOS Procedures: Surgery Specimen Level IV HEADER OPERATION: Colonoscopy and biopsy PRE-OP DIAGNOSIS: Diarrhea TISSUE SUBMITTED: A- Terminal ileum biopsy, B- Random colonic biopsy, C- Rectum and sigmoid biopsy MICROSCOPIC DIAGNOSIS A. Terminal ileum, biopsy: Fragments of small intestinal mucosa, no pathologic diagnosis. B. Colon, random biopsy: Fragments of colonic mucosa, no pathologic diagnosis. C. Rectum and sigmoid mucosal biopsy: Fragments of colonic mucosa, no pathologic diagnosis. Aamir 06/16/2024 MICROSCOPIC DESCRIPTION Slides are reviewed. GROSS DESCRIPTION A. Received in fixative is one container labeled with the patient's name and designated Terminal ileum biopsy. The specimen consists of two irregular fragments of light malagon soft tissue that in aggregate measure 0.6 x 0.3 x 0.1 cm. The specimen is totally submitted in one cassette. B. Received in fixative is one container labeled with the patient's name and designated Random colonic biopsy. The specimen consists of multiple irregular fragments of light malagon soft tissue that in aggregate measure 2.0 x 0.5 x 0.1 cm. The specimen is totally submitted in one cassette. C. Received in fixative is one container labeled with the patient's name and designated Rectum and sigmoid mucosal biopsy. The specimen consists of multiple irregular fragments of light malagon soft tissue that in aggregate measure 1.5 x 0.5 x 0.1 cm. The specimen is totally submitted in one cassette. Amair 06/15/2024 TC:4 CPT:[id number]
[2024-06-12 14:38] VITALS: BP 108/77; BP 119/84; PULSE 62; RESP 16; TEMP 36.5; O2SAT 99
--- NOTE | 2024-06-12 14:39 | PCM.POST.ANE ---
Anesthesia: Postop Eval I Current Vital Signs Temperature: 97.3 F Pulse Rate: 67 Blood Pressure: 108/77 Respiratory Rate: 16 Pulse Ox: 100 Oxygen Delivery Method: Room Air Assessment Airway patent: Yes Spontaneous unlabored respirations: Yes Mental status: Awake and Calm nausea: No Vomiting: No Anesthesia Complication: No Fluid Hydration Crystalloid volume administer (ml): 900 Total IV fluid infused: 900 Progress Note Anesthesia document: Postop Eval 1 completed: Yes
[2024-06-12 14:40] VITALS: BP 104/75; BP 108/77; BP 119/84; PULSE 59; PULSE 67; RESP 16; TEMP 36.3; O2SAT 100
--- NOTE | 2024-06-12 14:40 | OP.COLON_ITS ---
Patient Name: Cayetano Fitzgerald Procedure Date: 06/12/2024 2:03 PM Date of : 1985 Age: 38 Procedure: Colonoscopy Indications: Chronic diarrhea Providers: Barrera Colmenares DO Medicines: Monitored Anesthesia Care Patient Profile: This is a 38 year old female. Refer to note in patient chart for documentation of history and physical. Last Colonoscopy: none. The patient's first colonoscopy is today. Complications: No immediate complications. Procedure: Pre-Anesthesia Assessment: - Prior to the procedure, a History and Physical was performed, and patient medications and allergies were reviewed. The patient is competent. The risks and benefits of the procedure and the sedation options and risks were discussed with the patient. All questions were answered and informed consent was obtained. Patient identification and proposed procedure were verified by the physician in the pre-procedure area. Mental Status Examination: alert and oriented. Airway Examination: normal oropharyngeal airway and neck mobility. Respiratory Examination: clear to auscultation. CV Examination: normal. Prophylactic Antibiotics: The patient does not require prophylactic antibiotics. Prior Anticoagulants: The patient has taken no anticoagulant or antiplatelet agents except for NSAID medication. ASA Grade Assessment: II - A patient with mild systemic disease. After reviewing the risks and benefits, the patient was deemed in satisfactory condition to undergo the procedure. The anesthesia plan was to use monitored anesthesia care (MAC). Immediately prior to administration of medications, the patient was re-assessed for adequacy to receive sedatives. The heart rate, respiratory rate, oxygen saturations, blood pressure, adequacy of pulmonary ventilation, and response to care were monitored throughout the procedure. The physical status of the patient was re-assessed after the procedure. After I obtained informed consent, the scope was passed under direct vision. Throughout the procedure, the patient's blood pressure, pulse, and oxygen saturations were monitored continuously. The colonoscope was introduced through the anus and advanced to the terminal ileum. The colonoscopy was performed without difficulty. The patient tolerated the procedure well. The quality of the bowel preparation was adequate. The terminal ileum was photographed. Scope In: 2:16:18 PM Scope Withdrawal Time 0 hours 10 minutes 44 seconds Scope Out: 2:31:34 PM Total Procedure Duration Time 0 hours 15 minutes 16 seconds Findings: The perianal and digital rectal examinations were normal. Patchy mild inflammation characterized by angiodysplasia, erosions, erythema and friability was found in the rectum, in the recto-sigmoid colon, in the sigmoid colon and in the descending colon. Biopsies were taken with a cold forceps for histology. Verification of patient identification for the specimen was done. Estimated blood loss was minimal. The terminal ileum appeared normal. Biopsies were taken with a cold forceps for histology. Verification of patient identification for the specimen was done. Estimated blood loss was minimal. Impression: - Patchy mild inflammation was found in the rectum, in the recto-sigmoid colon, in the sigmoid colon and in the descending colon secondary to colitis. Biopsied. - The examined portion of the ileum was normal. Biopsied. Recommendation: - Discharge patient to home. - Resume previous diet. - Continue present medications. - Await pathology results. - Repeat colonoscopy for surveillance based on pathology results. Procedure Code(s): --- Professional --- 58207, Colonoscopy, flexible; with biopsy, single or multiple CPT copyright 2021 [employer]. All rights reserved. The codes documented in this report are preliminary and upon award machine operator review may be revised to meet current compliance requirements. Barrera Colmenares DO 06/12/2024 2:39:46 PM This report has been signed electronically. Number of Addenda: 0 Note Initiated On: 06/12/2024 2:03 PM
[2024-06-12 14:45] VITALS: BP 115/84; BP 119/84; PULSE 64; RESP 16; TEMP 37.4; O2SAT 100
[2024-06-12 14:57] VITALS: BP 119/84
--- NOTE | 2024-06-12 15:32 | PCM.POSTANE2 ---
Anesthesia Postop Eval I Sum Postop Eval Completion status Anesthesia document: Postop Eval 1 completed: Yes Anesthesia Postop Eval I Summary Anesthesia Postop Eval I Summary: Anesthesia Postop Eval I: Assessment Summary Airway patent Yes 06/12/24 14:40 [email or web address] Spontaneous unlabored Yes 06/12/24 14:40 [email or web address] respirations Mental status Awake,Calm 06/12/24 14:40 [email or web address] nausea No 06/12/24 14:40 [email or web address] Vomiting No 06/12/24 14:40 [email or web address] Anesthesia Postop Eval I: Fluid Summary Crystalloid volume administer 900 06/12/24 14:40 [email or web address] (ml) Colloids volume administered ( ml) Blood Product volume administered (ml) Total IV fluid infused 900 06/12/24 14:40 [email or web address] Anesthesia Postop Eval I: Summary Notes Anesthesia Complication No 06/12/24 14:40 [email or web address] Anesthesia Complication Comment: Post-operative progress note Anesthesia: Postop Eval II Evaluation Mental status: Awake Pain Level: 0 nausea: No Vomiting: No
[2024-06-12 15:50] LABS: Erythrocyte Sedimentation Rate 3 mm/hr (0-30)
[2024-06-12 16:17] LABS: Amylase 50 U/L (25-115); Lipase 61 U/L (13-75)
[2024-06-17 17:08] LABS: Anti-Centromere B Ab <0.2 AI (0.0-0.9); Anti-Chromatin <0.2 AI (0.0-0.9); Anti-Jo <0.2 AI (0.0-0.9); Anti-Scleroderma-70 AB <0.2 AI (0.0-0.9); Anti-dsDNA Ab <1 IU/mL (0-9); Beef <0.10 kU/L (Class 0); CRP, High Sensitivity 1.16 mg/L (0.00-3.00); Chocolate <0.10 kU/L (Class 0); Codfish <0.10 kU/L (Class 0); Corn <0.10 kU/L (Class 0); Egg, Whole <0.10 kU/L (Class 0); Milk (Cow) <0.10 kU/L (Class 0); Mussels <0.10 kU/L (Class 0); Peanut <0.10 kU/L (Class 0); Pork <0.10 kU/L (Class 0); RNP Ab 0.3 AI (0.0-0.9); SJOGREN'S Anti-SS-A test < 0.2 AI (0.0-0.9); SJOGREN'S Anti-SS-B test < 0.2 AI (0.0-0.9); Salmon <0.10 kU/L (Class 0); Shrimp 0.15 kU/L (Class 0/I); Smith Ab <0.2 AI (0.0-0.9); Soybean <0.10 kU/L (Class 0); Tuna <0.10 kU/L (Class 0); Wheat <0.10 kU/L (Class 0)
[2024-06-18 21:07] LABS: ACCA 16 units (0-90); ALCA 20 units (0-60); AMCA 56 units (0-100); Alpha-1-Globulins 0.3 g/dL (0.0-0.4); Alpha-2-Globulins 0.6 g/dL (0.4-1.0); Chromogranin A 38.7 ng/mL (0.0-101.8); Cytoplasmic Ab (C-ANCA) <1:20 titer (Neg:<1:20); Deamidated Gliadin IgA 4 units (0-19); Deamidated Gliadin IgG 3 units (0-19); Endomysial Antibody IgA Negative (Negative); Gamma Globulin 1.4 g/dL (0.4-1.8); Gastrin, Serum 71 pg/mL (0-115); IgG, Quant 1133 mg/dL (586-1602); Immunoglobulin A 260 mg/dL (87-352); Immunoglobulin E 30 IU/mL (6-495); Immunoglobulin G, Subclass 1 566 mg/dL (248-810); Immunoglobulin G, Subclass 2 335 mg/dL (130-555); Immunoglobulin G, Subclass 3 52 mg/dL (15-102); Immunoglobulin G, Subclass 4 34 mg/dL (2-96); Immunoglobulin M 267 mg/dL (26-217); PROEL- TOTAL PROTEIN 7.5 g/dL (6.0-8.5); Perinuclear Ab (P-ANCA) <1:20 titer (Neg:<1:20); gASCA 17 units (0-50); t-Transglutaminase IgA <2 U/mL (0-3)
== END 2024-06-12 15:11 | disposition home or self-care (01) ==
LOC: EN 12:58 → AC 12:58
PROVIDERS: Anesthesiology; PCP Nurse Practitioner; Referring Provider Nurse Practitioner; Visit Provider Internal Medicine Gastroenterology
PROC: 0DJD8ZZ Inspection of Lower Intestinal Tract, Via Natural or Artificial Opening Endoscopic (ICD-10-PCS; CPT 45378; principal; 2024-06-12 13:55)
DX: K52.9 Noninfective gastroenteritis and colitis, unspecified (principal); K55.20 Angiodysplasia of colon without hemorrhage; K62.89 Other specified diseases of anus and rectum; K63.89 Other specified diseases of intestine
CPT/HCPCS: 45380; 36415; 81025; 82150; 82784; 82785; 82787; 82941; 83516; 83690; 84165; 85652; 86003; 86005; 86036; 86141; 86225; 86235; 86255; 86256; 86316; 86334; 86671; 88305; J7120; J2405

== ENCOUNTER → 2024-06-30 | Outpatient (CLI) | payer BC, SELFPAY ==
--- NOTE | 2024-06-30 16:00 | RAD_ITS ---
INDICATION: s/p pneumonia f/u EXAMINATION/TECHNIQUE: X-RAY - XR Chest 2 Views COMPARISON: None. FINDINGS: The lungs are clear. The cardiomediastinal silhouette is unremarkable. No pleural effusion or pneumothorax. No acute osseous abnormalities. RAD/Chest PA and Lateral IMPRESSION: No acute radiographic abnormalities. Electronically Signed: Ignacio Mondragon MD at 16:32 EDT ,
== END | disposition home or self-care (01) ==
PROVIDERS: PCP Nurse Practitioner; Referring Provider Nurse Practitioner; Visit Provider Nurse Practitioner
DX: J18.9 Pneumonia, unspecified organism (principal)
CPT/HCPCS: 71046

== ENCOUNTER → 2025-01-06 | Outpatient (CLI) | payer BC, OTHER, SELFPAY ==
[2025-01-06 15:19] LABS: Cholesterol 238 mg/dL (<=200); High Density Lipoprotein 65 mg/dL; Low Density Lipoprotein Calc. 159 mg/dL; Triglycerides 70 mg/dL; Very Low Density Lipoprotein 14 mg/dL (5-40); cholesterol:hdl ratio screen 3.64
[2025-01-06 15:48] LABS: Hemoglobin A1c 5.1 % (<=5.6)
[2025-01-07 04:07] LABS: Thyroid Peroxidase AB < 9 IU/mL (0-34)
== END | disposition home or self-care (01) ==
LOC: VSLAB 09:15
PROVIDERS: PCP Nurse Practitioner Family; Visit Provider Nurse Practitioner Family
DX: E03.9 Hypothyroidism, unspecified (principal); Z13.1 Encounter for screening for diabetes mellitus; Z13.220 Encounter for screening for lipoid disorders
CPT/HCPCS: 36415; 80061; 83036; 84439; 84443; 86376

== ENCOUNTER → 2025-01-13 | Outpatient (CLI) | payer BC, OTHER, SELFPAY ==
--- NOTE | 2025-01-13 13:14 | BI_ITS ---
EXAM: SCRN MAMM (CAD)W/RASHID BILAT DATE: 01/13/2025 CLINICAL HISTORY: F, Age 39 y/o , SCREENING History of hand with breast cancer. BREAST CANCER RISK ASSESSMENT: Not assessed. TECHNIQUE: Bilateral screening digital breast tomosynthesis with 2D and 3D images. Computer aided detection. COMPARISON: Prior exam(s) dated December 26, 2023.. FINDINGS: TISSUE DENSITY: The breast tissue is extremely dense which lowers the sensitivity of mammography. Bilateral Breast Mammographic Findings: No significant masses, calcifications or other abnormalities are identified. Stable small bilateral fat containing axillary lymph nodes. No suspicious masses, areas of developing architectural distortion, or suspicious calcifications. There has been no significant interval change. BI/SCRN MAMM (CAD)W/RASHID BILAT IMPRESSION: Right Breast: BIRADS 2 BENIGN FINDING. Left Breast: BIRADS 2 BENIGN FINDING. OVERALL FINAL ASSESSMENT: BIRADS 2 BENIGN FINDING RECOMMENDATION: Routine annual follow-up in 1 Year A letter with findings and recommendations will be mailed to the patient. Reading Location: [place] [id number]
== END | disposition home or self-care (01) ==
LOC: OPBI 13:13
PROVIDERS: PCP Nurse Practitioner Family; Referring Provider Nurse Practitioner Family; Visit Provider Nurse Practitioner Family
DX: Z12.31 Encounter for screening mammogram for malignant neoplasm of breast (principal)
CPT/HCPCS: 77063; 77067

== ENCOUNTER → 2025-04-23 | Outpatient (CLI) | payer BC, OTHER, SELFPAY | END | disposition home or self-care (01) | LOC: VSLAB 08:51 | PROVIDERS: PCP Nurse Practitioner Family | DX: E03.9 Hypothyroidism, unspecified (principal) | CPT/HCPCS: 36415; 84439; 84443 ==

== ENCOUNTER → 2025-06-01 | Outpatient (CLI) | payer BC, OTHER, SELFPAY | END | disposition home or self-care (01) | LOC: LAB 09:22 | PROVIDERS: PCP Nurse Practitioner Family | DX: E03.9 Hypothyroidism, unspecified (principal) | CPT/HCPCS: 36415; 84439; 84443 ==

== ENCOUNTER → 2025-06-16 | Outpatient (CLI) | payer BC, OTHER, SELFPAY ==
[2025-06-19 11:08] LABS: Testosterone, % Free 1.50 % (0.50-2.80); Testosterone, Free 0.12 ng/dL (0.10-0.85)
== END | disposition home or self-care (01) ==
LOC: VSLAB 09:16
PROVIDERS: PCP Nurse Practitioner Family
DX: R68.82 Decreased libido (principal)
CPT/HCPCS: 36415; 84402; 84403